=== PATIENT | male | born 1955 | race Caucasian/White ===

== ENCOUNTER 2019-12-09 13:06 | Outpatient (CLI) | payer OTHER ==
[2019-12-09] MEDS ORDERED: IV NS 0.9% 250 ML IV ONE (13:36)
[2019-12-09] MEDS ORDERED: CT SWABBABLE VALVE TRANS SET 1 EA INFUS.SET MC ONE (13:36)
[2019-12-09] MEDS ORDERED: IOHEXOL-350 100 ML VIAL IV ONE (13:36)
[2019-12-09 13:39] LABS: CALCIUM, SERUM 9.3 mg/dL (8.5-10.1); CREATININE 1.5 mg/dL (0.6-1.3); POTASSIUM 3.7 mmol/L (3.5-5.1)
== END 2019-12-09 23:59 | disposition home or self-care (01) ==
LOC: CT 13:06
PROVIDERS: ATTEND Internal Medicine Interventional Cardiology
DX: I48.91 Unspecified atrial fibrillation (principal); E87.6 Hypokalemia
CPT/HCPCS: 36415; 80048; J7050; Q9967

== ENCOUNTER 2019-12-10 11:43 | Outpatient (CLI) | payer OTHER ==
[2019-12-10] MEDS ORDERED: REGADENOSON 0.4 MG/5 ML DISP.SYRIN IVP ONE (12:00)
== END 2019-12-10 23:59 | disposition home or self-care (01) ==
LOC: NM 11:43
PROVIDERS: ATTEND Internal Medicine Interventional Cardiology
DX: I48.91 Unspecified atrial fibrillation (principal); R07.9 Chest pain, unspecified
CPT/HCPCS: 78452; A9502; J2785